=== PATIENT | male | born 1970 | race Caucasian/White ===

== ENCOUNTER 2024-03-31 01:22 | Outpatient (CLI) | payer BC, SELFPAY ==
--- NOTE | 2024-03-31 07:43 | DI.RAD_ITS ---
Exam(s) XR CHEST 2V PA LATERAL EXAM: XR CHEST 2V PA LATERAL CLINICAL HISTORY: Palpable chest wall nodule,r22.2 TECHNIQUE: 2D digital imaging was performed of the chest. Two images were obtained. PA and lateral views were obtained. COMPARISON: CT CT CHEST LUNG CANCER SCREEN from 09/19/2023 FINDINGS: A BB was placed on the area of concern along the right anterior chest wall. No abnormality is seen i n this area radiographically. MEDIASTINUM: Normal. HEART: Normal. PULMONARY VASCULATURE: Normal. LUNGS: Clear. PLEURAL SPACE: No pleural effusion or pneumothorax. BONE:Within normal limits for the patient's age. OTHER FINDINGS:Normal. IMPRESSION: 1. No acute pulmonary findings. 2. No abnormalities seen to correspond to the BB radiographically. If there is continued concern, ul trasound or CT scan may be considered for further evaluation. DATA REPOSITORY: RADIATION DOSE DELIVERED:
== END 2024-03-31 01:42 ==
LOC: DI 01:22
PROVIDERS: PCP Family Medicine; Visit Provider Family Medicine
DX: R22.2 Localized swelling, mass and lump, trunk (principal)
CPT/HCPCS: 71046

== ENCOUNTER 2024-03-31 02:12 | Outpatient (CLI) | payer BC, SELFPAY ==
[2024-03-31 07:53] LABS: Abs Immature Grans 0.01 10^3/uL (0.0-0.06); Absolute Basophil Count 0.03 10^3/uL (0.0-0.2); Absolute Eosinophil Count 0.08 10^3/uL (0.0-0.7); Absolute Lymphocyte Count 1.58 10^3/uL (1.2-3.4); Absolute Monocyte Count 0.45 10^3/uL (0.1-0.8); Absolute Neutrophil Count 1.52 10^3/uL (1.2-6.7); Basophils % 0.8 %; Eosinophils % 2.2 %; HCT 45.3 % (40.0-50.0); HGB 15.4 g/dL (13.5-17.5); Immature Grans % 0.3 %; Lymphocytes % 43.1 %; MCH 30.5 pg (27.0-33.0); MCV 90 fL (80-95); MPV 9.5 fL (8.0-11.0); Monocytes % 12.3 %; Neutrophils % 41.3 %; Platelet Count 267 10^3/uL (130-400); RBC 5.05 10^6/uL (4.36-5.78); RDW 11.9 % (11.8-14.1); RDW-SD 38.8 fL; WBC 3.67 10^3/uL (4.4-10.8)
[2024-03-31 08:10] LABS: Lipase 91 U/L (16-77)
[2024-03-31 08:24] LABS: ALT 29 U/L (16-63); AST 20 U/L (15-37); Albumin 4.1 g/dL (3.4-5.0); Alkaline Phosphatase 85 U/L (46-116); Anion Gap 8.9 mmol/L (3-11); BUN 21 mg/dL (7-18); Bilirubin, Total 0.47 mg/dL (0.2-1.0); CO2 26.1 mmol/L (21.0-32.0); CREATININE 1.1 mg/dL (0.70-1.30); Calcium 9.6 mg/dL (8.5-10.1); Chloride 106 mmol/L (98-107); Estimated GFR 81.28 (mL/min/1.73m2); Glucose 113 mg/dL (74-106); Potassium 4.5 mmol/L (3.5-5.1); Sodium 141 mmol/L (136-145); Total Protein 7.9 g/dL (6.4-8.2)
== END 2024-03-31 02:13 | disposition home or self-care (01) ==
LOC: LBO 02:12
PROVIDERS: PCP Family Medicine; Visit Provider Family Medicine
DX: R10.9 Unspecified abdominal pain (principal); R22.2 Localized swelling, mass and lump, trunk
CPT/HCPCS: 36415; 80053; 83690; 85025

== ENCOUNTER 2024-08-17 08:24 | Day surgery (SDC) | payer BC, SELFPAY ==
--- NOTE | 2024-08-16 15:01 | W.PM.DSUDISC ---
Date of service: 08/17/24 Discharge Plan Disposition Patient Disposition: Home Condition: Good Discharge Details Reason For Visit: screening colonoscopy Attending Provider: Geovanni Rose Primary Care Provider: Vasu Boyd Home Meds and New Rx's Prescriptions: Continued naproxen 500 mg tablet 500 mg PO BID PRN (Reason: pain) Qty: 60 0RF Zepbound 7.5 mg/0.5 mL pen injector 7.5 mg subcut QWEEK Qty: 2 0RF Discontinued bisacodyl [Dulcolax (bisacodyl)] 5 mg tablet,delayed release (DR/EC) 5 mg PO ONCE Qty: 4 0RF Rx Instructions: Take per colonoscopy instructions provided by ordering providers office polyethylene glycol 3350 17 gram/dose powder 17 g PO ONCE Qty: 238 0RF Rx Instructions: Take per colonoscopy instructions provided by ordering providers office Discharge Instructions Instructions: Colon polyps, Diverticulosis Additional Instructions: Yasmani, was very nice meeting you today. I hope you are comfortable through the colonoscopy. Things went very smoothly. Your prep was great we can see things fine. In addition to the diverticulosis that she knew about, I did find and removed 2 polyps today. 1 of these was relatively large in size, and appears a bit inflamed. I suspect this is probably a result of some prolapse change. That is your colon trying to push the polyp through which resulted in irritation and inflammation. I will send these 2 polyps off to the pathologist for their review. Because of the inflammation associated with the larger of these 2 polyps, my inclination is to repeat your colonoscopy within a year to reassess that area. But I want to see the results of the polyp analysis before we make any final decisions. Those results will take about a week or 2 for me to get back, but once my office has them I will be in touch. If you need anything in the meantime, please do not hesitate to call. 1. If tolerated, consume a soft, low fiber diet for 1-2 days. 2[address] Do not drive, drink alcohol, operate machinery, make critical decisions, or do activities that require coordination or balance for 24 hours. 3. Because air was put into your colon during the procedure, expelling air from your rectum (passing gas or farting) is normal. 4. You may not have a bowel movement for 1-3 days because of the colonoscopy prep. This is normal. 5. Go directly to the emergency room if you notice any of the following: Develop chills (warm to touch), or if you have a thermometer and your temperature is above 101 Difficulty breathing or difficultly swallowing Persistent vomiting Severe abdominal pain, other than gas cramps Severe chest pain Black, tarry stools Any bleeding ? exceeding one tablespoon 6. Call your physician if the site where your intravenous was started becomes red, swollen, painful, and warm to touch. 7. Your physician has reviewed your pre-procedure medications. Please continue to take those medications as previously ordered. You will be given specific information/education regarding any changes to your medications before leaving. Stand Alone Forms: Anesthesia Discharge Inst., Aileen Andrade (DSU) Activity:: Activity as Tolerated Diet:: As Tolerated Discharge Orders Discharge Orders: Discharge Order (Routine); Ordered 08/16/24 Ordered By: Geovanni Rose DS: Diagnosis Discharge Diagnosis (1) Encounter for screening colonoscopy: Status: Acute Asessment and Plan: Follow-up on polypectomy results
--- NOTE | 2024-08-16 15:03 | W.COLOREPORT ---
Date of service: 08/17/24 Time of Service: 10:17 Colonoscopy Report Date of procedure: 08/17/24 Pre-op diagnosis general: screening colonoscopy Post-op diagnosis procedure note: other (Sigmoid diverticulosis, colon polyps) Procedure: colonoscopy with polypectomy Surgeon: Geovanni Rose Anesthesia Type: General:No Airway Estimated blood loss (mL): 5 Pathology: other (0.5 cm flat polyp at 30 cm, 0.75 cm pedunculated polyp at 20 cm) Complications: None Disposition: same day Indications: Yasmani is a 54 year old man who needs a screening colonoscopy Prep: Miralax/Dulcolax Procedure Start Time: 09:44 Procedure End Time: 10:07 Retraction Time: 20 Findings: Sigmoid diverticulosis; 0.5 cm flat polyp at 30 cm, 0.75 cm pedunculated polyp at 20 cm Procedure Description: After the induction of anesthesia, and with the patient in left lateral decubitus position, I began by performing an external anorectal exam.? Perineum and skin were normal, as was the anal verge.? There was no evidence of external hemorrhoids.? Next, I performed a digital rectal exam.? I did not appreciate any abnormal findings.? Next, I advanced a colonoscope into the rectal vault.? I performed retroflexion.? This appeared normal.? Using irrigation, I then advanced the colonoscope beyond the rectal folds and into the sigmoid colon before advancing towards the cecum.? The quality of the prep was excellent.? The scope was noted to be in the cecum by identification of the ileocecal valve and appendiceal orifice.? I then began withdrawing the colonoscope using repeated irrigation as necessary for full evaluation of the colonic mucosa. There is sigmoid diverticulosis that starts about 35 cm from the anal verge. ?Around 30 cm from the anal verge was a 0.5 cm mostly flat polyp. This was removed with cold snare polypectomy without any issues. There was minimal bleeding from the site. Around 20 cm from the anal verge was another polyp. This was pedunculated, with some inflamed surrounding tissue. The polyp was removed with a energize snare polypectomy, and the surrounding inflamed tissue was gently cauterized. There was minimal bleeding. Once the scope was withdrawn to the level of the rectum, great care was taken to examine portions of the rectal folds.? Finally, the scope was withdrawn and the patient was brought to the same-day surgery recovery unit as the anesthetic wore off. ?The findings and instructions were shared with the patient prior to discharge. [place] Bowel Prep [place] Bowel Prep Right Colon: 3 Left Colon: 3 Transverse Colon: 3 Total Score: 9
[2024-08-17 08:43] VITALS: BP 107/86; PULSE 84; RESP 20; TEMP 35.3; O2SAT 95
--- NOTE | 2024-08-17 08:55 | W.ANESPRE ---
General Info Date of Service Date Performed: 08/17/24 Height: 5 ft 6 in Weight: 94.9 kg Body Mass Index (BMI): 33.7 Surgical Procedure: Operation Date: 08/17/24 09:50 Proposed Procedure Side Surgeon p Yokasta Rose MD Meds Allergies and Home Medications Allergies Allergy/AdvReac Type Severity Reaction Status Date / Time moxifloxacin AdvReac Unknown Other (See Verified 08/14/24 12:14 Comment) Home Medication ?Medication ?Instructions ?Recorded naproxen 500 mg tablet 500 mg PO BID PRN pain #60 tabs 04/16/24 tirzepatide (weight loss) 7.5 7.5 mg (0.5 mL) subcut QWEEK #2 mL 07/30/24 mg/0.5 mL subcutaneous pen injector (Zepbound) Current Visit Medications: Current Medications Generic Name Dose Route Start Last Admin Trade Name Freq PRN Reason Stop Dose Admin Ringer's Solution 1,000 mls @ 80 mls/hr 08/17/24 06:00 IV 08/17/24 23:59 INFUSION LIA IV Miscellaneous Supplies 1 each 08/17/24 06:00 Iv Access IV 08/17/24 23:59 DIRECTED LIA Ondansetron HCl 4 mg 08/16/24 15:04 Ondansetron 4 Mg/2 Ml Vial IVP 09/15/24 15:03 Q4H PRN PRN Nausea / Vomiting Sodium Chloride 0 ml 08/17/24 06:00 Normal Saline Flush 10 Ml Syr IV 08/17/24 23:59 PRN PRN Sodium Chloride 0 ml 08/17/24 06:00 Normal Saline 10 Ml Vial IJ 08/17/24 23:59 DIRECTED PRN Sterile Water 0 ml 08/17/24 06:00 Water,Injection,Sterile 10 Ml Vial IJ 08/17/24 23:59 DIRECTED PRN PFSH Active Problems Active Problems: Problem Status Onset Code Encounter for screening colonoscopy Acute Z12.11 Shoulder arthritis Acute M19.019 Diverticulitis large intestine Acute K57.32 Neoplasm of unspecified behavior of bone, soft tissue, and skin Acute D49.2 Onychomycosis Acute B35.1 Obesity (BMI 30.0-34.9) Acute E66.9 Onychoatrophy Acute L60.3 Ex-smoker Acute Z87.891 Prediabetes Acute 07/31/20 R73.03 Medical History Medical History Unintentional weight loss (12/28/19) Thrombocytosis (12/25/19) Plt 480 Abscess of brain (05/19/21) 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 Tobacco Smoking/Tobacco Use Status: Former Tobacco Use Smokeless tobacco user: chewing tobacco (Quit date - a while ago) Passive smoking exposure: Yes Second hand exposure: Yes Alcohol Alcohol Intake: current Alcohol intake frequency: 3 or more drinks per day Alcohol type: beer and hard liquor Details: 1-2 at a time 2-4 times a month Substance Use Substance use: Never Substance use type: does not use Vital Signs and Lab Results Vital Signs Most Recent Vital Signs in EMR: Most Recent Vital Signs Temp Pulse Resp BP Pulse Ox 35.3 C L 84 20 107/86 95 08/17/24 08:43 08/17/24 08:43 08/17/24 08:43 08/17/24 08:43 08/17/24 08:43 Lab Results Blood Type / Crossmatch: No Data to Display Complete Blood Count: No Data to Display Complete Metabolic Panel: No Data to Display Liver Function Panel: No Data to Display Coagulation Panel: No Data to Display Cardiac Panel: No Data to Display Arterial Blood Gas: No Data to Display Venous Blood Gas: No Data to Display Pancreas Panel: No Data to Display Thyroid Panel: No Data to Display Infectious Disease: No Data to Display Blood Cultures: No Data to Display Toxicology Panel: No Data to Display Anesthesia Assessment and Plan Anesthesia History Personal History: No History of Anesthesia Complications Family History: No Family History of Anesthesia Complications Exercise Tolerance Exercise Tolerance: Metabolic Equivalents>4 Pertinent Negatives Pertinent Negatives: No Symptoms of GERD Cardiac & Pulmonary Exam Cardiac Exam: Normal S1/S2 Heart Sounds Pulmonary Exam: Clear Bilateral Breath Sounds Implantable Cardiac Device Does patient have a Pacemaker or an ICD?: No Airway Exam Known Difficult Airway: No Mallampati Class: 1 Mouth Opening: Normal (> 3cm) Thyromental Distance: Greater than 3 cm Neck Range of Motion: Full ROM Neck Circumference: Normal Teeth Condition: Normal Dentition ASA Classification ASA Score: ASA 2 Emergency Case?: No NPO Status NPO Status: NPO Clears >2 hours, Solids >8 hours Anesthesia Plan Resuscitation Status: Full Code Anesthesia Technique: General Anesthesia Airway Planned: Natural Airway Monitors Used: Standard Monitors
[2024-08-17 08:56] VITALS: BMI 33.7
[2024-08-17] MEDS: Lactated Ringers 1,000 ML 80 ML IV (08:57)
--- NOTE | 2024-08-17 09:54 | BOWEL_PTH ---
PATIENT: Yasmani Becker LOC: [facility] U#:[id number] AGE/SX: 54/M ROOM: RE08/17/[address]: Geovanni Rose MD : 1970 BED: DIS: 08/17/2024 SPEC #: [id number] RECD: 08/17/24 12:21 STATUS: KRISTINE RE #: [id number] RONEY: 08/17/24 09:[address]: Geovanni Rose DEPT: Surgical Specimen RECD BY: Bambi Navarro ENTERED: 08/17/24 12:22 SP TYPE: Bowel OTHR DR: Vasu Boyd DO Tissues: 1 - BIOPSY BOWEL 2 - BIOPSY BOWEL Procedures: GROSS AND MICRO LEVEL 4 Comments: [id number]
[2024-08-17 10:14] VITALS: BP 87/62; PULSE 76; RESP 18; TEMP 36.3; O2SAT 92
--- NOTE | 2024-08-17 10:25 | W.ANESPOSTOP ---
Postoperative Evaluation Date, Time and Location Date Performed: 08/17/24 Time Performed: 10:25 Patient Location: Day Surgery Unit Vital Signs Most Recent Imported Vital Signs: Most Recent Vital Signs Temp Pulse Resp BP Pulse Ox 36.3 C L 76 18 87/62 L 92 08/17/24 10:14 08/17/24 10:14 08/17/24 10:14 08/17/24 10:14 08/17/24 10:14 Pain Score Most Recent Pain Score: Most Recent Pain Score Pain Level 0 08/17/24 08:43 Assessment Mental Status: Awake (Alert & Oriented to Patient Baseline) Airway and Respiratory Function: Patent airway with normal (patient baseline) respiratory exam Cardiovascular Function: Hemodynamically Stable Hydration Status: Adequately Hydrated Nausea & Vomiting: No Nausea or Vomiting Pain: Pt. Denies Any Pain Peripheral Nerve Block: Patient did not receive a nerve block
[2024-08-17 10:48] VITALS: BP 113/81; PULSE 64; RESP 18; TEMP 36.2; O2SAT 98
== END 2024-08-17 11:04 | disposition home or self-care (01) ==
PROVIDERS: PCP Family Medicine; Visit Provider Surgery
PROC: 0DJD8ZZ Inspection of Lower Intestinal Tract, Via Natural or Artificial Opening Endoscopic (ICD-10-PCS; CPT 45378; principal; 2024-08-17 09:45)
DX: Z12.11 Encounter for screening for malignant neoplasm of colon (principal); K57.30 Diverticulosis of large intestine without perforation or abscess without bleeding; D12.5 Benign neoplasm of sigmoid colon
CPT/HCPCS: 45385; 88305; J2003; J2371; J2704

== ENCOUNTER 2025-04-02 10:01 | Outpatient (CLI) | payer OTHER, SELFPAY ==
[2025-04-02 11:22] LABS: ESR 2 mm/hr (0-20)
[2025-04-02 11:35] LABS: C-Reactive Protein < 0.50 mg/dL (<or=0.5)
[2025-04-05 08:48] LABS: Lyme Ab w Rflx to Lyme Confirm Negative (Negative)
[2025-04-05 14:13] LABS: B. miyamotoi PCR Negative (Negative); Babesia divergens/MO-1 Negative (Negative); Ehrlichia muris eauclairensis Negative (Negative)
== END 2025-04-02 10:02 | disposition home or self-care (01) ==
LOC: LBO 10:03
PROVIDERS: PCP Family Medicine; Visit Provider Family Medicine
DX: R51.9 Headache, unspecified (principal)
CPT/HCPCS: 36415; 85652; 87798; 86140; 86618

== ENCOUNTER → 2025-04-16 02:45 | Outpatient (CLI) | payer OTHER, SELFPAY ==
--- NOTE | 2025-04-16 07:00 | DI.CT_ITS ---
Exam(s) CT HEAD WO/W EXAM: CT HEAD WO/W CLINICAL HISTORY: New onset headache,h/o abscess,r51.9. TECHNIQUE: Imaging Protocol: Axial computed tomography images with coronal and sagittal reformatted images were created and reviewed. CONTRAST MATERIAL: Intravenous: Omnipaque 350 Contrast volume:100 ml COMPARISON: CT CT HEAD/BRAIN WO CONTRAST from 05/28/2021 FINDINGS: Ventricles and Extra axial spaces: Normal in size and morphology for the patient's age. Hemorrhage: None. Cerebral parenchyma: No evidence of mass or infarct. Mild residual scarring is noted in the left frontal and parietal lobes. The patient had a previous history of left-sided abscesses in 2021 in these locations.. Enhancement: No suspicious enhancement. Midline shift: None. Brainstem/Cerebellum: Normal. Calvarium: Normal. Visualized Paranasal sinuses/Mastoids: There is mucous retention within the left frontal sinus and a few ethmoid sinuses. IMPRESSION: Mild areas of scarring in the left frontal and left parietal lobes. No evidence of acute hemorrhage, infarct or mass. No abnormal enhancing lesions. Mild chronic sinus disease. RADIATION DOSE DELIVERED: 1,553.43mGy.cm Total DLP DATA REPOSITORY: All CT scans at this facility are submitted to the National Radiology Data Registry (NRDR) Dose Index Registry (DIR) with the [employer] ([employer]). RADIATION OPTIMIZATION: All CT scans at this facility use at least one of these dose optimization techniques: automated exposure control; mA and/or kV adjustment per patient size (includes targeted exams where dose is matched to clinical indication); or iterative reconstruction.
[2025-04-16] MEDS: Omnipaque 350 MG/ML 100 ML BTL IJ (09:14)
[2025-04-16] MEDS: Normal Saline Flush 10 ML SYR IVP (09:15)
[2025-04-16] MEDS: Normal Saline - Diluent 50 ML VIAL IJ (09:15)
== END ==
LOC: DI 02:45
PROVIDERS: PCP Family Medicine; Visit Provider Family Medicine
DX: R51.9 Headache, unspecified (principal)
CPT/HCPCS: 70470; J3490